=== PATIENT | female | born 1980 | race Caucasian/White ===

== ENCOUNTER 2023-11-01 06:35 | Day surgery (SDC) | payer BC ==
[~2023-11-01 06:35] MED LIST: Sodium Chloride 0.9% 10 ML Syringe FLUSH PRN; Sodium Chloride 0.9% 2.5 ML Syringe FLUSH PRN; Sodium Chloride 0.9% 20 ML SDV IV PRN; ceFAZolin 2 GM in Sodium Chloride 0.9% 50 ML IV ONE; metroNIDAZOLE/Normal Saline 100 ML ONE
[2023-11-01] MEDS: Lactated Ringers 1,000 ML IV SCH (07:08)
[2023-11-01] MEDS ORDERED: Bupivacaine 0.5% 30 ML SDV ONE (07:16)
[2023-11-01] MEDS ORDERED: Bupivacaine 0.25% 30 ML SDV ONE (07:26)
[2023-11-01] MEDS ORDERED: Ropivacaine 0.5% 5 MG/ML 30 ML SDV ONE (07:26)
[2023-11-01] MEDS ORDERED: Dexamethasone 4 MG/ML 5 ML MDV ONE (07:30)
[2023-11-01] MEDS ORDERED: Propofol 200 MG/20 ML SDV ONE (07:30)
[2023-11-01] MEDS ORDERED: Ketorolac 30 MG/ML SDV ONE (07:30)
[2023-11-01] MEDS ORDERED: Rocuronium Bromide 50 MG/5 ML Syringe ONE (07:30)
[2023-11-01] MEDS ORDERED: Lidocaine 2% 5 ML SDV ONE (07:30)
[2023-11-01] MEDS ORDERED: Sugammadex Sodium 200 MG/2 ML VIAL IV ONE (07:30)
[2023-11-01] MEDS ORDERED: Ondansetron 4 MG/2 ML SDV ONE (07:30)
[2023-11-01] MEDS ORDERED: fentaNYL 100 MCG/2 ML SDV ONE (07:30)
[2023-11-01] MEDS: metroNIDAZOLE/Normal Saline 500 MG in Premix Bag 1 BAG IV ONE (07:31)
[2023-11-01] MEDS ORDERED: EPINEPHrine 1 MG/1 ML Amp ONE (07:32)
[2023-11-01] MEDS ORDERED: ceFAZolin 2 GM Vial ONE (07:39)
[2023-11-01] MEDS ORDERED: Ketamine 500 mg/10 ML MDV ONE (07:40)
[2023-11-01] MEDS ORDERED: Metoclopramide 10 MG/2 ML SDV IVPUSH PRN (07:57)
[2023-11-01] MEDS ORDERED: Albuterol 0.083% 2.5 MG/3 ML Neb Soln NEB PRN (07:57)
[2023-11-01] MEDS ORDERED: Ondansetron 4 MG/2 ML SDV IVPUSH PRN (07:57)
[2023-11-01] MEDS ORDERED: fentaNYL 50 MCG/ML SDV IVPUSH PRN (07:57)
[2023-11-01] MEDS ORDERED: Morphine 2 MG/ML SYRINGE IVPUSH PRN (07:57)
[2023-11-01] MEDS ORDERED: droPERidol 5 MG/2 ML SDV IVPUSH PRN (07:57)
[2023-11-01] MEDS ORDERED: Naloxone 0.4 MG/ML SDV IVPUSH PRN (07:57)
[2023-11-01] MEDS ORDERED: HYDROmorphone 1 MG/ML Syringe IVPUSH PRN (07:57)
[2023-11-01] MEDS ORDERED: ePHEDrine 50 MG/ML SDV ONE (08:43)
== END 2023-11-01 10:58 | disposition home or self-care (01) ==
LOC: MW.SDS 06:35
PROVIDERS: ATTEND Surgery
DX: K81.1 Chronic cholecystitis (principal); K82.8 Other specified diseases of gallbladder; Z79.899 Other long term (current) drug therapy; Z88.5 Allergy status to narcotic agent
CPT/HCPCS: 47562; 64488; J0131; J0171; J0665; J0690; J1100; J1836; J1885; J2704; J2795; J3010; J3490; J7120; 00790; J2405

== ENCOUNTER 2023-11-06 13:18 | Emergency (ER) | payer BC ==
[2023-11-06] MEDS: Ondansetron 4 MG/2 ML SDV IVPUSH STA (14:04)
[2023-11-06] MEDS: Sodium Chloride 0.9% 2.5 ML Syringe FLUSH PRN (14:04)
[2023-11-06] MEDS: Ketorolac 30 MG/ML SDV IVPUSH STA (14:04)
[2023-11-06] MEDS: Sodium Chloride 0.9% 1,000 ML IV STA (14:04)
[2023-11-06] MEDS: Sodium Chloride 0.9% 10 ML Syringe FLUSH PRN (14:05)
[2023-11-06 14:06] LABS: BASOPHILS ABSOLUTE AUTO 0.04 K/uL (0.00-0.20); BASOPHILS PERCENT AUTO 0.3 % (0.0-1.0); EOSINOPHILS PERCENT AUTO 1.4 % (0.0-6.0); HEMATOCRIT 40.2 % (37.0-47.0); HEMOGLOBIN 13.7 g/dL (12.0-16.0); IMMATURE GRAN ABSOLUTE AUTO 0.03 K/uL (0.00-0.05); IMMATURE GRAN PERCENT AUTO 0.2 % (0.0-0.4); LYMPHOCYTES PERCENT AUTO 8.9 % (24.0-44.0); MEAN CORPUSCULAR HEMOGLOBIN 27.5 pg (28.0-32.0); MEAN CORPUSCULAR HGB CONC 34.1 g/dL (32.0-36.0); MEAN CORPUSCULAR VOLUME 80.7 fL (83.0-99.0); MEAN PLATELET VOLUME 9.6 fL (9.4-12.3); MONOCYTES ABSOLUTE AUTO 0.54 K/uL (0.00-0.80); MONOCYTES PERCENT AUTO 3.7 % (0.0-8.0); NEUTROPHILS ABSOLUTE AUTO 12.57 K/uL (1.80-7.70); NEUTROPHILS PERCENT AUTO 85.5 % (41.0-71.0); PLATELET COUNT,PLT 313 K/uL (150-400); RED BLOOD CELL COUNT 4.98 M/uL (4.10-5.30); WHITE BLOOD CELL COUNT,WBC 14.68 K/uL (3.9-11.3)
[2023-11-06 14:39] LABS: BILIRUBIN TOTAL 0.9 mg/dL (0.2-1.0); CALCIUM 9.4 mg/dL (8.5-10.1); CARBON DIOXIDE,CO2 26.9 mmol/L (21.0-32.0); EST CRCL DRUG DOSING (CG) 69.31 mL/min; POTASSIUM,K 3.9 mmol/L (3.5-5.1); PROTEIN TOTAL,TP 8.1 g/dL (6.4-8.2)
[2023-11-06 15:15] LABS: APPEARANCE,URINE CLEAR; BILIRUBIN,URINE NEGATIVE (NEGATIVE); GLUCOSE,URINE NEGATIVE (NEGATIVE); KETONES,URINE NEGATIVE (NEGATIVE); LEUKOCYTE ESTERASE,URINE NEGATIVE (NEGATIVE); NITRITE,URINE NEGATIVE (NEGATIVE); OCCULT BLOOD,URINE NEGATIVE (NEGATIVE); PH,URINE 7.5 (5.0-8.0); PROTEIN,URINE NEGATIVE (NEGATIVE); UROBILINOGEN,URINE 0.2 EU/dL (<2.0)
[2023-11-06 15:24] LABS: COLOR,URINE STRAW
[2023-11-06] MEDS: Iopamidol 755 MG/ML 500 ML Multipack Bottle IVPUSH STA (15:36)
[2023-11-06] MEDS: Acetaminophen 500 MG Tab PO STA (15:39)
== END 2023-11-06 16:58 | disposition home or self-care (01) ==
LOC: MW.ED 13:18
DX: R10.84 Generalized abdominal pain (principal); K21.9 Gastro-esophageal reflux disease without esophagitis; Z90.49 Acquired absence of other specified parts of digestive tract; Z90.710 Acquired absence of both cervix and uterus; Z79.899 Other long term (current) drug therapy; Z88.5 Allergy status to narcotic agent; Z88.6 Allergy status to analgesic agent; Z88.8 Allergy status to other drugs, medicaments and biological substances
CPT/HCPCS: 36415; 71046; 74177; 80053; 81003; 83605; 83690; 84484; 84703; 85025; 96361; 96374; 96375; 99285; A9270; J1885; J2405; J3490; J7030; Q9967; 93010; 99284